=== PATIENT | female | born 1990 | race Caucasian/White ===

== ENCOUNTER 2024-02-19 04:10 | Emergency (ER) | payer SELFPAY ==
[~2024-02-19] VITALS: Ht 170.2 cm; Wt 55.0 kg
[2024-02-19 04:12] VITALS: O2SAT 99
[2024-02-19 04:38] LABS: BASOPHILS % 0.8 % (0.0-2.0); DIFFERENTIAL COMMENT 0; HEMOGLOBIN. 9.2 g/dL (12.0-16.0); LYMPHOCYTES % 26.2 % (20.0-50.0); MEAN CORPUSCULAR HEMOGLOBIN 21.9 pg (28.0-32.0); MEAN CORPUSCULAR HGB CONC 29.5 g/dL (31.0-37.0); MEAN CORPUSCULAR VOLUME 74.1 fL (81.0-99.0); MEAN PLATELET VOLUME 7.5 fl (7.4-10.4); MONOCYTES % 10.4 % (2.0-8.0); NEUTROPHILS % 57.6 % (40.0-76.0); PLATELET 366 x1000/uL (130-400); RED BLOOD CELL COUNT 4.18 mill/uL (4.2-5.4); WHITE BLOOD COUNT 11.6 x1000/uL (4.5-11.0)
[2024-02-19 04:42] LABS: CARBON DIOXIDE 24 mEq/L (21-32); CHLORIDE 111 mEq/L (98-107); POTASSIUM 3.3 mEq/L (3.5-5.1); SODIUM 141 mEq/L (136-145)
[2024-02-19 04:43] LABS: CALCIUM 9.2 mg/dL (8.7-10.4)
[2024-02-19 04:48] LABS: CREATININE 0.7 mg/dL (0.6-1.0); GLUCOSE 88 mg/dL (70-105); UREA NITROGEN BLOOD 8 mg/dL (9-23)
[2024-02-19 04:55] LABS: ETHANOL BLOOD < 10 mg/dL (<10)
[2024-02-19 05:00] LABS: HCG SCREEN NEGATIVE
[2024-02-19 07:58] VITALS: BP 108/60; PULSE 87; RESP 14; TEMP 36.83628; O2SAT 97
== END 2024-02-19 08:07 | disposition home or self-care (01) ==
LOC: ER 04:10
DX: R55 Syncope and collapse (principal)
CPT/HCPCS: 80048; 80320; 84703; 85025; 36415; 99283; Z7610 ×3; G0480